=== PATIENT | female | born 1965 | race Caucasian/White ===

== ENCOUNTER → 2017-04-20 | Outpatient (CLI) | payer BC | LOC: MC.RAD 10:56 | DX: Z12.31 Encounter for screening mammogram for malignant neoplasm of breast (principal) ==

== ENCOUNTER 2023-10-06 12:14 | Emergency (ER) | payer BC ==
[~2023-10-06] VITALS: Ht 162.6 cm; Wt 90.9 kg
[2023-10-06 12:26] VITALS: TEMP 98
[2023-10-06 12:57] LABS: COLLECTION METHOD CLEAN CATCH
[2023-10-06 13:16] LABS: BASO % 0.5 % (0.0-2.0); EOS # 0.1 K/mm3 (0.0-0.7); GRAN # 4.3 K/mm3 (1.4-6.5); GRAN % 71.5 % (42.2-75.2); HEMATOCRIT 42.3 % (37.0-47.0); HEMOGLOBIN 13.5 g/dl (12.5-16.0); LYMPH # 1.1 K/mm3 (1.2-3.4); LYMPH % 18.8 % (20.0-51.0); MEAN CELL VOLUME 94 fl (80.0-100.0); MEAN CORPUSCULAR HEMOGLOBIN 30 pg (27-31); MEAN CORPUSCULAR HGB CONC 32 g/dl (33.0-37.0); MEAN PLATELET VOLUME 9.4 fl (7.4-10.4); MONO # 0.5 K/mm3 (0.1-0.6); MONO % 7.9 % (1.7-9.3); PLATELET COUNT 198 K/mm3 (130-400); REDCELL DISTRIBUTION WIDTH-CV 12.4 % (11.5-14.5)
[2023-10-06 13:30] LABS: PH 5.5 (5.0-8.5); URINE APPEARANCE Cloudy (CLEAR/HAZY); URINE COLOR Yellow (YELLOW); URINE GLUCOSE Negative (NEGATIVE); URINE KETONE TRACE (NEGATIVE); URINE PROTEIN(semi-quant) 2+ (NEGATIVE)
[2023-10-06 13:31] LABS: SQUAMOUS EPITHELIAL 0-2 /hpf (0-10); URINE BACTERIA Many /hpf (NONE SEEN); URINE BLOOD 3+ (NEGATIVE); URINE NITRATE Negative (NEGATIVE); URINE RBC >50 /hpf (0-2); URINE UROBILINOGEN 0.2 E.U/dL (0.2-1.0)
[2023-10-06 13:34] LABS: ALBUMIN 4.2 gm/dL (3.5-5.0); BILIRUBIN,TOTAL 0.5 mg/dL (0.2-1.2); CALCIUM 9.2 mg/dL (8.4-10.2); CREATININE, serum 0.93 mg/dL (0.57-1.11); POTASSIUM 3.9 mmol/L (3.5-4.5); TOTAL PROTEIN 7.9 gm/dL (6.2-8.1)
[2023-10-06 15:09] VITALS: BP 136/72; PULSE 54
[2023-10-06] MEDS ORDERED: NORCO 325 MG-51 TAB PO (15:12)
[2023-10-06] MEDS ORDERED: CEPHALEXIN500 M1 PO (15:12)
[2023-10-06] MEDS ORDERED: ZOFRAN 4MG T4 MG/TAB PO (15:12)
== END 2023-10-06 15:27 | disposition home or self-care (01) ==
LOC: COL.ER 12:14
PROVIDERS: Physician Assistant
DX: N20.2 Calculus of kidney with calculus of ureter (principal); N39.0 Urinary tract infection, site not specified
CPT/HCPCS: J0696; J1885; J7030; Q9967

== ENCOUNTER 2023-10-26 18:12 | Emergency (ER) | payer BC ==
[~2023-10-26] VITALS: Ht 162.6 cm; Wt 90.9 kg
[~2023-10-26 18:12] MED LIST: CEPHALEXIN500 M1 PO; NORCO 325 MG-51 TAB PO; ZOFRAN 4MG T4 MG/TAB PO
[2023-10-26 18:24] VITALS: TEMP 98.4
[2023-10-26] MEDS ORDERED: NS 1,000 ML IV ONE (21:15)
[2023-10-26 21:38] LABS: COLLECTION METHOD CLEAN CATCH
[2023-10-26 21:48] LABS: BASO % 0.5 % (0.0-2.0); EOS # 0.1 K/mm3 (0.0-0.7); EOS % 0.9 % (0.0-4.0); GRAN # 4.8 K/mm3 (1.4-6.5); GRAN % 63.9 % (42.2-75.2); HEMATOCRIT 38.9 % (37.0-47.0); HEMOGLOBIN 12.7 g/dl (12.5-16.0); LYMPH % 26.9 % (20.0-51.0); MEAN CELL VOLUME 92 fl (80.0-100.0); MEAN CORPUSCULAR HEMOGLOBIN 30 pg (27-31); MEAN CORPUSCULAR HGB CONC 33 g/dl (33.0-37.0); MEAN PLATELET VOLUME 9.5 fl (7.4-10.4); MONO # 0.6 K/mm3 (0.1-0.6); MONO % 7.4 % (1.7-9.3); PLATELET COUNT 196 K/mm3 (130-400); RED BLOOD COUNT 4.22 M/mm3 (4.10-5.30); REDCELL DISTRIBUTION WIDTH-CV 12.4 % (11.5-14.5)
[2023-10-26 22:03] LABS: BILIRUBIN,TOTAL 0.6 mg/dL (0.2-1.2); CALCIUM 9.4 mg/dL (8.4-10.2); CREATININE, serum 0.94 mg/dL (0.57-1.11); POTASSIUM 3.6 mmol/L (3.5-4.5); TOTAL PROTEIN 7.4 gm/dL (6.2-8.1)
[2023-10-26 22:14] LABS: SQUAMOUS EPITHELIAL 0-2 /hpf (0-10); URINE APPEARANCE Clear (CLEAR/HAZY); URINE BACTERIA None Seen /hpf (NONE SEEN); URINE BLOOD 1+ (NEGATIVE); URINE COLOR Yellow (YELLOW); URINE GLUCOSE Negative (NEGATIVE); URINE KETONE Negative (NEGATIVE); URINE NITRATE Negative (NEGATIVE); URINE PROTEIN(semi-quant) Negative (NEGATIVE); URINE RBC None Seen /hpf (0-2); URINE UROBILINOGEN 0.2 E.U/dL (0.2-1.0)
[2023-10-26 22:53] LABS: C-REACTIVE PROTEIN 0.56 mg/dL (0.00-0.50)
[2023-10-26 22:58] VITALS: BP 142/81; PULSE 55
[2023-10-27] MEDS ORDERED: LR 1,000 ML IV SCH (09:15)
[2023-10-27] MEDS ORDERED: FLOMAX 0.40.4 MG/CAP PO (15:38)
== END 2023-10-26 23:44 | disposition home or self-care (01) ==
LOC: COL.ER 18:12
PROVIDERS: Nurse Practitioner
DX: N20.0 Calculus of kidney (principal)
CPT/HCPCS: J7030

== ENCOUNTER 2023-10-27 15:11 | Day surgery (SDC) | payer BC ==
[2023-10-27] VITALS (10 sets, daily range): BP systolic 142–187; BP diastolic 60–81; PULSE 49–69; TEMP 98–98.2
[~2023-10-27] VITALS: Ht 162.6 cm; Wt 92.0 kg
[~2023-10-27 15:11] MED LIST changes: +LR 1,000 ML IV ONE
[2023-10-27] MEDS ORDERED: FLOMAX 0.40.4 MG/CAP PO (15:38)
[2023-10-27] MEDS ORDERED: fentaNYL 50 MCG/ML 2 ML VIAL ONE (17:44)
[2023-10-27] MEDS ORDERED: Iohexol 350 - 100 ML VIAL URETER -L ONE (18:03)
[2023-10-27] MEDS ORDERED: Lidocaine 2% (20 MG/ML) 20 ML UROJET UR ONE (18:12)
[2023-10-27] MEDS ORDERED: Lidocaine PF 2% (20 MG/ML) 5 ML VIAL ONE (18:13)
[2023-10-27] MEDS ORDERED: dexAMETHasone 10 MG/ML VIAL ONE (18:13)
[2023-10-27] MEDS ORDERED: Ondansetron 4 MG/2 ML VIAL ONE ×2 (18:13)
[2023-10-27] MEDS ORDERED: fentaNYL 50 MCG/ML 2 ML VIAL IV PRN (18:15)
[2023-10-27] MEDS ORDERED: Ondansetron 4 MG/2 ML VIAL IV PRN ×2 (18:15→18:30)
[2023-10-27] MEDS ORDERED: hydrALAZINE 20 MG/ML 1 ML VIAL IV PRN ×2 (18:15→20:15)
[2023-10-27] MEDS ORDERED: droPERidol 2.5 MG/ML 2 ML VIAL IV PRN (18:15)
[2023-10-27] MEDS ORDERED: HYDROmorphone 2 MG/1 ML VIAL IV PRN (18:15)
[2023-10-27] MEDS ORDERED: Meperidine 50 MG/ML 1 ML VIAL IV PRN (18:15)
[2023-10-27] MEDS ORDERED: Morphine 4 MG/ML VIAL IV PRN ×2 (18:15→21:15)
[2023-10-27] MEDS ORDERED: Hyoscyamine 0.125 MG Sublingual TAB SL PRN (18:30)
[2023-10-27] MEDS ORDERED: Acetaminophen 325 MG TAB PO PRN (18:30)
[2023-10-27] MEDS ORDERED: Naloxone 0.4 MG/ML VIAL IV PRN (18:30)
[2023-10-27] MEDS ORDERED: Acetaminophen 500 MG TAB PO SCH (19:24)
--- NOTE | 2023-10-27 19:57 | NUR ---
Patient noted to have elevated blood pressure any where from 170s-190s. Spoke with Dr Morton and new orders received. This nurse to room to administer HCTZ and patient noted to now have blood pressure of 150s/70s, HR 50. Will continue to monitor BP befor administering due to dramatic drop post pain meds.
[2023-10-27] MEDS ORDERED: hydroCHLOROthiazide 25 MG TAB PO ONE (20:15)
--- NOTE | 2023-10-27 20:54 | NUR ---
Patients blood pressure has increased to 168/88. HCTZ given per dr order but only took half a tab per request of patient. C/O increase pressure/pain to lower abdomen and back-rtaing 8/10 on pain scale. Attempt made at this time to call Dr. Morton. No answer. Will retry.
--- NOTE | 2023-10-27 21:00 | NUR ---
Spoke with Dr Morton and new orders received and initiated. Okay for liviatent to stay overnight if needed for pain control. Will reassess.
[2023-10-27] MEDS ORDERED: Ketorolac 15 MG/ML VIAL IV PRN (21:15)
[2023-10-27] MEDS ORDERED: oxyCODONE/Acetaminophen 5-325 MG TAB PO PRN (21:15)
--- NOTE | 2023-10-27 22:45 | NUR ---
Dischrage criteria met. Patients pain is now under control post toradol/percocet. Tolerating PO. VS stable-blood pressure is 140s/60s. Voiding without difficulty. Discharge instructions given both verbal and handwritten. Discussed f/u appt, s/s of infection, home medications, diet and activity. Verbalizes understanding. INT to left AC DCd-cath intact. Escorted off valdes in wheelchair by PCT and in stable condition.
== END 2023-10-27 22:52 | disposition home or self-care (01) ==
LOC: SDCO 15:11 → MEDICAL 19:06 → SDCO 22:52 → MEDICAL 22:52
DX: N20.1 Calculus of ureter (principal)
CPT/HCPCS: OP; C1769; C2617; J0690; J1100; J1885; J2405; J2704; J3010; J7120; Q9967